=== PATIENT | male | born 1985 | race Two or more races ===

== ENCOUNTER → 2018-08-29 | Emergency (ER) | payer OTHER ==
[~2018-08-29] VITALS: Ht 170.2 cm; Wt 68.0 kg
[~2018-08-29] MED LIST: IPRAT-ALBUT 0.5-3 ML IH; MEDROLPACK PO; MUCINEX DM ER1 EAC1 PO; ZITHROMAX TRI-500 MG PO; [UNRECOGNIZED DRUG - OTHER]
== END | disposition home or self-care (01) ==
LOC: ER 16:31
DX: J45.901 Unspecified asthma with (acute) exacerbation (principal); J06.9 Acute upper respiratory infection, unspecified; J11.1 Influenza due to unidentified influenza virus with other respiratory manifestations

== ENCOUNTER → 2021-09-15 | Day surgery (SDC) | payer OTHER ==
[~2021-09-15] VITALS: Ht 170.2 cm; Wt 70.8 kg
[~2021-09-15] MED LIST changes: +CLEOCIN HCL300 MG PO; +MOTRIN IB200 M1; +ODEFSEY TABLET1 EACH; +ULTRAM50 MG PO
== END | disposition home or self-care (01) ==
LOC: ER 00:08 → SEC-K 09:50 → CIR.AMB 09:50 → ER 09:50 → CIR.AMB 09:50 → O/R 09:50 → EDSTATUS 11:45 → SEC-K 13:37 → O/R 13:37
PROVIDERS: ATTEND Surgery
DX: K61.1 Rectal abscess (principal); Z20.822 Contact with and (suspected) exposure to COVID-19

== ENCOUNTER 2021-10-15 10:03 | Emergency (ER) | payer OTHER ==
[~2021-10-15] VITALS: Ht 170.2 cm; Wt 71.2 kg
[2021-10-15] MEDS ORDERED: CLONAZEPAM1 MG PO (10:16)
[2021-10-15] MEDS ORDERED: ODEFSEY TABLET1 EACH PO (10:16)
== END 2021-10-15 14:08 | disposition home or self-care (01) ==
LOC: ER 10:03
DX: M79.10 Myalgia, unspecified site (principal); K91.89 Other postprocedural complications and disorders of digestive system; Z98.890 Other specified postprocedural states; B20 Human immunodeficiency virus [HIV] disease

== ENCOUNTER 2021-11-22 03:53 | Emergency (ER) | payer OTHER ==
[~2021-11-22] VITALS: Ht 170.2 cm; Wt 68.0 kg
[~2021-11-22 03:53] MED LIST changes: +CLONAZEPAM1 MG PO; +ODEFSEY TABLET1 EACH PO
[2021-11-22] MEDS ORDERED: CEPHALEXIN500 M1 PO (07:18)
[2021-11-22] MEDS ORDERED: INTESTINEX680 M1 PO (07:18)
[2021-11-22] MEDS ORDERED: BACTRIM DS TAB1 EACH PO (07:18)
== END 2021-11-22 07:28 | disposition home or self-care (01) ==
LOC: ER 03:53
DX: L02.31 Cutaneous abscess of buttock (principal); B20 Human immunodeficiency virus [HIV] disease

== ENCOUNTER 2022-04-30 15:43 | Inpatient (IN) | payer OTHER ==
[~2022-04-30] VITALS: Ht 175.3 cm; Wt 134.7 kg
[~2022-04-30 15:43] MED LIST changes: +BACTRIM DS TAB1 EACH PO; +CEPHALEXIN500 M1 PO; +INTESTINEX680 M1 PO
== END 2022-05-04 21:32 | disposition home or self-care (01) | DRG 372 ==
LOC: ER 15:43 → SEC-K 21:23 → SURH 21:23
PROVIDERS: ADMIT Internal Medicine; ATTEND Internal Medicine
PROC: BW21YZZ Computerized Tomography (CT Scan) of Abdomen and Pelvis using Other Contrast (ICD-10-PCS; principal; 2022-04-30)
DX: A04.72 Enterocolitis due to Clostridium difficile, not specified as recurrent (principal); F14.20 Cocaine dependence, uncomplicated; K62.5 Hemorrhage of anus and rectum; B20 Human immunodeficiency virus [HIV] disease; E86.0 Dehydration; F12.20 Cannabis dependence, uncomplicated; Z20.822 Contact with and (suspected) exposure to COVID-19